=== PATIENT | female | born 1980 | race Caucasian/White ===

== ENCOUNTER → 2020-08-27 | Outpatient (CLI) | payer OTHER | LOC: M LABSMTC 13:17 | PROVIDERS: ATTEND Pediatrics | DX: Z20.822 Contact with and (suspected) exposure to COVID-19 (principal) | CPT/HCPCS: C9803; U0003 ==

== ENCOUNTER → 2021-01-10 | Outpatient (CLI) | payer OTHER ==
--- NOTE | 2021-01-10 19:00 | ECGEPIP ---
[facility] Test Date: 2021-01-10 Pat Name: MERVAT BAILEY Department: Room: - Gender: Female Package Designer: soha : 1980 Requested By: Other CDS - complete info on Order Number: [id number] Reading MD: Oh Daley Measurements Intervals [place] Rate: 83 P: 66 UT: 142 QRS: 16 QRSD: 78 T: 47 QT: 384 QTc: 451 Interpretive Statements Normal sinus rhythm LA conduction disturbance? Somewhat low limb voltages with slow precordial R wave progression; body habitus versus pulmonary disease. Rule out prior septal injury No prior tracing for comparison. Clincal correlation advised Electronically Signed on 01-10-2021 19:00:13 EDT by Oh Dalye
== END ==
LOC: M EKG 10:52
DX: Z79.899 Other long term (current) drug therapy (principal)

== ENCOUNTER 2021-08-31 06:20 | Day surgery (SDC) | payer OTHER ==
[~2021-08-31] VITALS: Ht 165.1 cm; Wt 78.9 kg
[~2021-08-31 06:20] MED LIST: ACETAMINOPHEN *IV* 1,000 MG IV ONE; ADDE20CA3 PO; ALPR0.5T3 PO; LEXA1TAB PO; LR 1,000 ML IV ONE; TRAZ-252 PO; ceFAZolin SOD 2 GM in IV 1 EA IV ONE
[2021-08-31] MEDS ORDERED: LIDOCAINE 2% 100MG/5ML SDV (FOR ANES.) As Ordered ONE (07:03)
[2021-08-31] MEDS ORDERED: fentaNYL 100 MCG/2 ML INJECTION As Ordered ONE (07:03)
[2021-08-31] MEDS ORDERED: propofoL 200 MG/20 ML VIAL As Ordered ONE (07:03)
[2021-08-31] MEDS ORDERED: ROCURONIUM BROMIDE 50 MG/5 ML VIAL As Ordered ONE (07:03)
[2021-08-31] MEDS ORDERED: KETOROLAC 60MG 2ML VIAL As Ordered ONE (07:04)
[2021-08-31] MEDS ORDERED: dexameTHASONE 4 MG/ML 1ML VIAL (J1100 PER 1MG) As Ordered ONE (07:04)
[2021-08-31] MEDS ORDERED: SUGAMMADEX SODIUM 500 MG/5 ML VIAL (BRIDION) As Ordered ONE (07:04)
[2021-08-31] MEDS ORDERED: ACETAMINOPHEN 1000MG 100ML IV BTL (OFIRMEV) (J0131 PER 10MG) As Ordered ONE (07:04)
[2021-08-31] MEDS ORDERED: ONDANSETRON 4MG/2ML VIAL As Ordered ONE (07:04)
[2021-08-31] MEDS ORDERED: MIDAZOLAM INJ 2MG/2ML VIAL (J2250 PER 1MG) As Ordered ONE (07:04)
[2021-08-31] MEDS ORDERED: LIDOCAINE 5% OINT 30GM TUBE As Ordered ONE (07:13)
[2021-08-31] MEDS ORDERED: FLUORESCEIN 10% (100MG/ML) 5 ML VIAL As Ordered ONE (07:16)
[2021-08-31 07:20] LABS: HEMATOCRIT 43.7 % (36.0-47.0); HEMOGLOBIN 14.6 g/dl (12.0-15.5); MEAN CORPUSCULAR HEMOGLOBIN 31.2 pg (27.0-33.0); MEAN CORPUSCULAR HGB CONC 33.4 g/dl (32.0-36.5); MEAN CORPUSCULAR VOLUME 93.4 fl (80.0-96.0); PLATELET COUNT, AUTOMATED 210 10^3/uL (150-450); RED BLOOD COUNT 4.68 10^6/uL (4.00-5.40); WHITE BLOOD COUNT 7.1 10^3/uL (4.0-10.0)
[2021-08-31] MEDS ORDERED: LR 1,000 ML IV SCH ×3 (07:30→09:50)
[2021-08-31 07:42] LABS: BLOOD UREA NITROGEN 8 MG/DL (7-18); CALCIUM LEVEL 8.7 MG/DL (8.5-10.1); CARBON DIOXIDE LEVEL 27 MEQ/L (21-32); CHLORIDE LEVEL 108 MEQ/L (98-107); CREATININE FOR GFR 0.96 MG/DL (0.55-1.30); GLOMERULAR FILTRATION RATE > 60.0 (>58); GLUCOSE, FASTING 104 MG/DL (70-100); POTASSIUM SERUM 3.8 MEQ/L (3.5-5.1); SODIUM LEVEL 141 MEQ/L (136-145)
[2021-08-31] MEDS ORDERED: BUPIVACAINE HCL 0.25% 30ML VIAL As Ordered ONE (07:49)
[2021-08-31] MEDS ORDERED: ESMOLOL INJ 100MG/10ML VIAL As Ordered ONE (07:56)
[2021-08-31] MEDS ORDERED: LABETALOL 100MG/20ML VIAL As Ordered ONE (08:13)
[2021-08-31] MEDS ORDERED: hydrALAZINE 20MG/ML 1ML VIAL (J0360 PER 20MG) As Ordered ONE (08:41)
[2021-08-31] MEDS ORDERED: IBUP1TAB7 PO (09:21)
[2021-08-31] MEDS ORDERED: PERCOCET 5MG/325MG TAB PO PRN (09:50)
[2021-08-31] MEDS ORDERED: oxyCODONE 5MG TAB PO PRN (09:50)
[2021-08-31] MEDS ORDERED: fentaNYL 100 MCG/2 ML INJECTION IV PRN (09:50)
[2021-08-31] MEDS ORDERED: ONDANSETRON 4MG/2ML VIAL IV PRN (09:50)
[2021-08-31 10:43] VITALS: BP 129/83
[2021-08-31] MEDS ORDERED: SIMETHICONE 80MG CHEW TAB PO SCH (12:00)
[2021-08-31] MEDS ORDERED: IBUPROFEN 800 MG TAB PO SCH (13:00)
== END 2021-08-31 10:55 | disposition home or self-care (01) ==
LOC: M SDC 06:20
PROVIDERS: ATTEND Obstetrics & Gynecology
DX: N92.0 Excessive and frequent menstruation with regular cycle (principal); N94.10 Unspecified dyspareunia; N83.202 Unspecified ovarian cyst, left side; K21.9 Gastro-esophageal reflux disease without esophagitis; F32.A Depression, unspecified; Z88.0 Allergy status to penicillin; Z79.899 Other long term (current) drug therapy
CPT/HCPCS: 36415; 58552; 80048; 85027; 86850; 86900; 86901; 88307; J0131; J0360; J0690; J1100; J1885; J2250; J2405; J3010; S2900

== ENCOUNTER 2021-10-21 18:13 | Emergency (ER) | payer OTHER ==
[~2021-10-21] VITALS: Ht 165.1 cm; Wt 79.1 kg
[~2021-10-21 18:13] MED LIST changes: -ACETAMINOPHEN *IV* 1,000 MG IV ONE; +IBUP1TAB7 PO; -LR 1,000 ML IV ONE; -ceFAZolin SOD 2 GM in IV 1 EA IV ONE
[2021-10-22 01:04] LABS: BASO # 0.1 10^3/uL (0.0-0.2); BASO % 0.5 % (0.0-1.0); EOS # 0.2 10^3/uL (0.0-0.5); EOS % 2.1 % (0.0-3.0); HEMATOCRIT 40.6 % (36.0-47.0); HEMOGLOBIN 13.8 g/dl (12.0-15.5); LYMPH # 2.2 10^3/uL (1.5-5.0); LYMPH % 20.9 % (24.0-44.0); MEAN CORPUSCULAR HEMOGLOBIN 31.4 pg (27.0-33.0); MEAN CORPUSCULAR VOLUME 92.3 fl (80.0-96.0); MONO # 0.8 10^3/uL (0.0-0.8); MONO % 7.4 % (2.0-8.0); NEUTROPHILS # 7.4 10^3/uL (1.5-8.5); NEUTROPHILS % 68.8 % (36.0-66.0); PLATELET COUNT, AUTOMATED 231 10^3/uL (150-450); WHITE BLOOD COUNT 10.7 10^3/uL (4.0-10.0)
[2021-10-22 01:39] LABS: CK-MB VALUE MASS < 1.0 NG/ML (<3.6); CPK CREATINE PHOSPHOKINASE 54 U/L (26-192); MB/CK RELATIVE INDEX 1.85 (< OR =4)
[2021-10-22 01:53] LABS: BLOOD UREA NITROGEN 8 MG/DL (7-18); CARBON DIOXIDE LEVEL 32 MEQ/L (21-32); CHLORIDE LEVEL 106 MEQ/L (98-107); GLOMERULAR FILTRATION RATE > 60.0 (>58); GLUCOSE, FASTING 112 MG/DL (70-100); POTASSIUM SERUM 3.6 MEQ/L (3.5-5.1); SODIUM LEVEL 142 MEQ/L (136-145)
[2021-10-22 01:54] LABS: CALCIUM LEVEL 8.9 MG/DL (8.5-10.1)
[2021-10-22] MEDS ORDERED: KETOROLAC 30 MG/ML 1ML VIAL IV ONE (04:40)
[2021-10-22] MEDS ORDERED: METHOCARBAMOL 1,000 MG/10 ML VIAL (J2800) IV ONE (04:40)
[2021-10-22] MEDS ORDERED: ISOVUE-370 76% 100ML VIAL As Ordered ONE (04:48)
[2021-10-22] MEDS ORDERED: ELIQ5TAB PO (06:51)
[2021-10-22] MEDS ORDERED: METH-1165 PO (06:52)
[2021-10-22 07:00] VITALS: BP 121/77
[2021-10-22] MEDS ORDERED: APIXABAN 5 MG TAB (ELIQUIS) PO ONE (07:00)
== END 2021-10-22 07:06 | disposition home or self-care (01) ==
LOC: M ED 18:13
DX: I26.99 Other pulmonary embolism without acute cor pulmonale (principal); F41.9 Anxiety disorder, unspecified; F90.9 Attention-deficit hyperactivity disorder, unspecified type; Z88.0 Allergy status to penicillin; F12.20 Cannabis dependence, uncomplicated; Z77.098 Contact with and (suspected) exposure to other hazardous, chiefly nonmedicinal, chemicals; Z79.899 Other long term (current) drug therapy; Z79.01 Long term (current) use of anticoagulants
CPT/HCPCS: 71275; 80048; 82550; 82553; 84484; 85025; 93005; 93970; 96374; 96375; 99284; J1885; J2800; Q9967

== ENCOUNTER → 2022-01-31 | Outpatient (CLI) | payer OTHER ==
[~2022-01-31] MED LIST changes: +ELIQ5TAB PO; +METH-1165 PO
== END ==
LOC: M PLALAB 08:29
PROVIDERS: ATTEND Internal Medicine Hematology
DX: I26.94 Multiple subsegmental thrombotic pulmonary emboli without acute cor pulmonale (principal)
CPT/HCPCS: 36415; 85379; G0463